=== PATIENT | male | born 1955 | race Caucasian/White ===

== ENCOUNTER 2024-12-20 05:59 | Emergency (ER) | payer SELFPAY ==
--- NOTE | ~2024-12-20 | XR_ITS ---
EXAMINATION: XR MANDIBLE CLINICAL INFORMATION: rule out dislocation COMPARISON: None available. TECHNIQUE: 4 views of the mandible were obtained. FINDINGS: There are no fractures or dislocations. No bone, joint or soft tissue abnormality is demonstrated. Patient is completely edentulous. XR/XR mandible <4V IMPRESSION: No fracture or dislocation involving TM joints or mandible.. Electronically signed by: Fortino Gallegos MD 12/20/2024 07:10 AM [facility] [place]
[2024-12-20 06:10] VITALS: BP 136/82; BP 150/73; PULSE 58; PULSE 61; RESP 16; TEMP 36.3; O2SAT 94; O2SAT 98; BMI 28.4
--- OUTSIDE RECORDS SUMMARY | 2024-12-20 06:47 | XMS_ITS | Encounter Summary ---
Author Organization [employer] Address [address] [place] [address] Care Team Providers Care Abattoir Supervisor Name Role Phone Jethro Alvarez MD Primary Care Provider Encounter Details Date Type Department Care Team (Late st Contact Info) Description 09/07/2024 Lab Requisition [facility] - Main Lab [address] [place] [address] Jethro Alvarez MD [address] [place] [address] Unspecified viral hepatitis C without hepatic coma Social History Tobacco Use Types Packs/Day Years Used Date Smoking Tobacco: Never Assessed Sex and Gender Information Value Date Recorded Sex Assigned at Not on file Legal Sex Male 12:36 PM EST Gender Identity Not on file Sexual Orientation Not on file documented as of this encounter Plan of Treatment Not on file documented as of this encounter Procedures Procedure Name Priority Date/Time Associated Diagnosis Comments SANCHEZ URINE CULTURE TUBE Routine 09/06/2024 9:00 PM EST Unspecified viral hepatitis C without hepatic coma DRUG ABUSE SCREEN 8A PANEL, URINE Routine 09/06/2024 9:00 PM EST Unspecified viral hepatitis C without hepatic coma documented in this encounter Results * Sanchez urine culture tube (09/06/2024 9:00 PM EST) Extra Tube Hold for add-ons. 09/07/2024 11:01 AM EST [facility] Comment:Auto resulted. Urine Urine specimen obtained by clean catch procedure / Unknown 09/06/2024 9:00 PM EST 09/07/2024 9:50 AM EST Jethro Alvarez MD LAB URINE ORDERABLES Final R esult [facility] [address] [place] [address], * Drug abuse screen 8a panel, urine (09/06/2024 9:00 PM EST) Amphetamine Screen, Ur Negative Negative LAB CHEMISTRY METHOD 09/07/2024 10:19 AM [facility] Comment:Certain OTC medicati ons containing ephedrine, phenylephrine, pseudoephedrine and phenylpropanolamine can cause false positive results. Barbiturate Screen, Ur Negative Negative LAB CHEMISTRY METHOD 09/07/2024 10:19 AM [facility] Benzodiazepine Screen, Ur Negative Negative LAB CHEMISTRY METHOD 09/07/2024 10:19 AM [facility] Cocaine Screen, Ur Negative Negative LAB CHEMISTRY METHOD 09/07/2024 10:19 AM [facility] Opiate Screen, Ur Negative Negative LAB CHEMISTRY METHOD 09/07/2024 10:19 AM [facility] Cannabinoid (THC) Screen, Ur Negative Negative LAB CHEMISTRY METHOD 09/07/2024 10:19 AM [facility] Comment:Specimens from patie nts taking pantoprazole sodium (Protonix) have been shown to produce false positive results. Oxycodone Screen, Ur Negative Negative LAB CHEMISTRY METHOD 09/07/2024 10:19 AM [facility] Fentanyl, Ur Negative Negative LAB CHEMISTRY METHOD 09/07/2024 10:19 AM [facility] Urine Urine specimen obtained by clean catch procedure / Unknown Non-blood Collection / Unknown 09/06/2024 9:00 PM EST 09/07/2024 9:27 AM [facility] - 09/07/2024 10:19 AM EST Assay cutoffs: Amphetamines ? 1000 ng/mL Barbiturates ?200 ng/mL Benzodiazepines ?? 200 ng/mL Cocaine ? 300 ng/mL Fentanyl ?1 ng/mL Opiates ? 300 ng/mL Oxycodone ? 100 ng/mL THC ?50 ng/mL Semi-quantitative assay for screening purposes only. Unconfirmed screening result should not be used for non-medical purposes. *ALTERNATE METHOD CONFIRMATION DONE UPON REQUEST ONLY* us Jethro Alvarez MD LAB URINE ORDERABLES Final R esult [facility] ([facility]) [facility] [address] [place] [address], documented in this encounter Visit Diagnoses Diagnosis Unspecified viral hepatitis C without hepatic coma documented in this encounter Care Teams Abattoir Supervisor Relationship Specialty Start Date End Date Jethro Alvarez MD [address] [place] [id number] PCP - General Family Medicine 08/29/24 documented as of this encounter
--- OUTSIDE RECORDS SUMMARY | 2024-12-20 06:47 | XMS_ITS | Encounter Summary ---
Author Organization [employer] Address [address] [place] [address] Care Team Providers Care Automatic Paint Sprayer Operator Name Role Phone Jethro Alvarez MD Primary Care Provider Encounter Details Date Type Department Care Team (Latest Contact Info) Description 10/19/2024 Lab Requisition [facility] - Main Lab [address] [facility] [place] [address] Jethro Alvarez MD [facility] [place] [address] Type 2 diabetes mellitus without complications (CMS/HCC); Unspecified protein-calorie malnutrition (CMS/HCC) Social History Tobacco Use Types Packs/Day Years [...] Procedure Name Priority Date/Time Associated Diagnosis Comments IRON AND TIBC Routine 10/19/2024 5:58 AM EST Type 2 diabetes mellitus without complications (CMS/HCC) Unspecified protein-calorie malnutrition (CMS/HCC) COMPLETE BLOOD COUNT Routine 10/19/2024 5:58 AM EST Type 2 diabetes mellitus without complications (CMS/HCC) Unspecified protein-calorie malnutrition (CMS/HCC) MAGNESIUM Routine 10/19/2024 5:58 AM EST Type 2 diabetes mellitus without complications (CMS/HCC) Unspecified protein-calorie malnutrition (CMS/HCC) IRON Routine 10/19/2024 5:58 AM EST Type 2 diabetes mellitus without complications (CMS/HCC) Unspecified protein-calorie malnutrition (CMS/HCC) FERRITIN Routine 10/19/2024 5:58 AM EST Type 2 diabetes mellitus without complications (CMS/HCC) Unspecified protein-calorie malnutrition (CMS/HCC) HEPATIC FUNCTION PANEL Routine 10/19/2024 5:58 AM EST Type 2 diabetes mellitus without complications (CMS/HCC) Unspecified protein-calorie malnutrition (CMS/HCC) documented in this encounter Results * Hepatic function panel (10/19/2024 5:58 AM EST) Total Protein 6.2 6.0 - 8.0 g/dL LAB CHEMISTRY METHOD 10/19/2024 10:32 AM [facility] Albumin 3.3 3.2 - 5.0 g/dL LAB CHEMISTRY METHOD 10/19/2024 10:32 AM [facility] Total Bilirubin 0.3 0.0 - 1.4 mg/dL LAB CHEMISTRY METHOD 10/19/2024 10:32 AM [facility] Bilirubin, Direct <0.1 0.0 - 0.3 mg/dL LAB CHEMISTRY METHOD 10/19/2024 10:32 AM [facility] Bilirubin, Indirect LAB CHEMISTRY METHOD 10/19/2024 10:32 AM [facility] Comment:Unable to calculate Indirect Bilirubin. ALT (SGPT) 28 10 - 60 unit/L LAB CHEMISTRY METHOD 10/19/2024 10:32 AM [facility] AST (SGOT) 17 10 - 42 unit/L LAB CHEMISTRY METHOD 10/19/2024 10:32 AM [facility] Alkaline Phosphatase 85 42 - 121 unit/L LAB CHEMISTRY METHOD 10/19/2024 10:32 AM [facility] Blood Venous blood specimen / Unknown Venipuncture / Unknown 10/19/2024 5:58 AM EST 10/19/2024 9:16 AM EST us Jethro Alvarez MD LAB BLOOD ORDERABLES Final R esult Performing Organization Address [facility]/ZIP Co de Phone Number [facility] [address] [place] [address], [place] [phone] * (ABNORMAL) Iron (10/19/2024 5:58 AM EST) Iron 45(L) 50 - 160 mcg/dL LAB CHEMISTRY METHOD 10/19/2024 10:29 AM EST [facility] Blood Venous blood specimen / Unknown Venipuncture / Unknown 10/19/2024 5:58 AM EST 10/19/2024 9:16 AM EST Jethro Alvarez MD LAB BLOOD ORDERABLES Final R esult Performing Organization Address [facility]/ZIP Co de Phone Number [facility] [address] [place] [address], [place] [phone] * Ferritin (10/19/2024 5:58 AM EST) Ferritin 34 26 - 388 ng/mL LAB CHEMISTRY METHOD 10/19/2024 10:32 AM EST [facility] Blood Venous blood specimen / Unknown Venipuncture / Unknown 10/19/2024 5:58 AM EST 10/19/2024 9:16 AM EST Jethro Alvarez MD LAB BLOOD ORDERABLES Final R esult Performing Organization Address City/[facility]/ZIP Co de Phone Number [facility] [address] [place] [address], [place] [phone] * (ABNORMAL) Iron and TIBC (10/19/2024 5:58 AM EST) Iron 45(L) 50 - 160 mcg/dL LAB CHEMISTRY METHOD 10/19/2024 10:32 AM EST [facility] TIBC 354 250 - 450 mcg/dL LAB CHEMISTRY METHOD 10/19/2024 10:32 AM EST [facility] Iron Saturation 13(L) 20 - 50 % LAB CHEMISTRY METHOD 10/19/2024 10:32 AM EST [facility] Blood Venous blood specimen / Unknown Venipuncture / Unknown 10/19/2024 5:58 AM EST 10/19/2024 9:16 AM EST Jethro Alvarez MD LAB BLOOD ORDERABLES Final R esult Performing Organization Address City/[facility]/ZIP Co de Phone Number [facility] [address] [place] [address], [place] [phone] * (ABNORMAL) Magnesium (10/19/2024 5:58 AM EST) Pathologist [facility] Magnesium 1.6(L) 1.9 - 2.6 mg/dL LAB CHEMISTRY METHOD 10/19/2024 10:29 AM EST [facility] Blood Venous blood specimen / Unknown Venipuncture / Unknown 10/19/2024 5:58 AM EST 10/19/2024 9:16 AM EST Jethro Alvarez MD LAB BLOOD ORDERABLES Final R esult Performing Organization Address City/[facility]/ZIP Co de Phone Number [facility] [address] [place] [address], [place] [phone] * (ABNORMAL) Complete blood count (10/19/2024 5:58 AM EST) WBC 10.7 4.8 - 10.8 K/mcL LAB HEMETOLOGY METHOD 10/19/2024 10:08 AM EST [facility] RBC 4.70 4.50 - 5.50 M/mcL LAB HEMETOLOGY METHOD 10/19/2024 10:08 AM [facility] Hemoglobin 13.0(L) 13.5 - 17.5 g/dL LAB HEMETOLOGY METHOD 10/19/2024 10:08 AM EST [facility] Hematocrit 40.8(L) 42.0 - 54.0 % LAB HEMETOLOGY METHOD 10/19/2024 10:08 AM [facility] MCV 87.0 79.0 - 98.0 FL LAB HEMETOLOGY METHOD 10/19/2024 10:08 AM [facility] MCH 27.7 27.0 - 32.0 pcg LAB HEMETOLOGY METHOD 10/19/2024 10:08 AM [facility] MCHC 31.9(L) 32.0 - 37.0 g/dL LAB HEMETOLOGY METHOD 10/19/2024 10:08 AM [facility] RDW 13.5 11.0 - 15.0 % LAB HEMETOLOGY METHOD 10/19/2024 10:08 AM [facility] Platelets 359 130 - 400 K/mcL LAB HEMETOLOGY METHOD 10/19/2024 10:08 AM [facility] MPV 11.0 7.0 - 11.0 FL LAB HEMETOLOGY METHOD 10/19/2024 10:08 AM [facility] NRBC 0.0 <1.0 % LAB HEMETOLOGY METHOD 10/19/2024 10:08 AM [facility] NRBC Absolute 0.00 <0.10 K/mcL LAB HEMETOLOGY METHOD 10/19/2024 10:08 AM [facility] Blood Venous blood specimen / Unknown Venipuncture / Unknown 10/19/2024 5:58 AM EST 10/19/2024 9:16 AM EST us Jethro Alvarez MD LAB BLOOD ORDERABLES Final R esult [facility] [address] [place] [address], documented in this encounter Visit Diagnoses Diagnosis Type 2 diabetes mellitus without complications (CMS/HCC) Unspecified protein-calorie malnutrition (CMS/HCC) Unspecified protein-calorie malnutrition documented in this encounter Care Teams Automatic Paint Sprayer Operator Relationship Specialty Start Date End Date Jethro Alvarez MD [address] [place] [address] PCP - General Family Medicine 08/29/24 documented as of this encounter
--- OUTSIDE RECORDS SUMMARY | 2024-12-20 06:47 | XMS_ITS | Encounter Summary ---
Author Organization [employer] Address [address] [place] [address] Care Team Providers Care Senior Customer Service Representative Name Role Phone Jethro Alvarez MD Primary Care Provider Encounter Details Date Type Department Care Team (Late st Contact Info) Description 08/29/2024 Lab Requisition [facility] [address] [facility] [place] [address] Jethro Alvarez MD [address] [place] [address] Essential (primary) hypertension Social History Tobacco Use Types Packs/Day Years [...] Procedure Name Priority Date/Time Associated Diagnosis Comments DRUG ABUSE SCREEN 8A PANEL, URINE Routine 08/29/2024 7:00 AM EST Essential (primary) hypertension documented in this encounter Results * (ABNORMAL) Drug abuse screen 8a panel, urine (08/29/2024 7:00 AM EST) Amphetamine Screen, Ur Negative Negative LAB CHEMISTRY METHOD 4 1:[address] [facility] Comment:Certain OTC medicati ons containing ephedrine, phenylephrine, pseudoephedrine and phenylpropanolamine can cause false positive results. Barbiturate Screen, Ur Negative Negative LAB CHEMISTRY METHOD 4 1:[address] [facility] Benzodiazepine Screen, Ur Positive(A ) Negative LAB CHEMISTRY METHOD 4 1:[address] [facility] Cocaine Screen, Ur Negative Negative LAB CHEMISTRY METHOD 4 1:[address] [facility] Opiate Screen, Ur Positive(A ) Negative LAB CHEMISTRY METHOD 4 1:29 PM [facility] Cannabinoid (THC) Screen, Ur Negative Negative LAB CHEMISTRY METHOD 4 1:[address] [facility] Comment:Specimens from patie nts taking pantoprazole sodium (Protonix) have been shown to produce false positive results. Oxycodone Screen, Ur Negative Negative LAB CHEMISTRY METHOD 4 1:[address] [facility] Fentanyl, Ur Negative Negative LAB CHEMISTRY METHOD 4 1:29 PM [facility] Urine Urine specimen obtained by clean catch procedure / Unknown 08/29/2024 7:00 AM EST 08/29/2024 12:[address] [facility] - 08/29/2024 1:29 PM EST Assay cutoffs: Amphetamines ? 1000 ng/mL Barbiturates ?200 ng/mL Benzodiazepines ?? 200 ng/mL Cocaine ? 300 ng/mL Fentanyl ?1 ng/mL Opiates ? 300 ng/mL Oxycodone ? 100 ng/mL THC ?50 ng/mL Semi-quantitative assay for screening purposes only. Unconfirmed screening result should not be used for non-medical purposes. *ALTERNATE METHOD CONFIRMATION DONE UPON REQUEST ONLY* Jethro Alvarez MD LAB URINE ORDERABLES Final R esult [facility] [address] [place] [address], documented in this encounter Visit Diagnoses Diagnosis Essential (primary) hypertension Unspecified essential hypertension documented in this encounter Care Teams Senior Customer Service Representative Relationship Specialty Start Date End Date Jethro Alvarez MD [address] [place] [address] PCP - General Family Medicine 08/29/24 documented as of this encounter
--- OUTSIDE RECORDS SUMMARY | 2024-12-20 06:47 | XMS_ITS | Encounter Summary ---
Author Organization [facility] Address [address] [place] [address] Care Team Providers Care Community Planning Technician Name Role Phone Jethro Alvarez MD Primary Care Provider [phone] Encounter Details Date Type Department Care Team (Late st Contact Info) Description 11/05/2024 Lab Requisition [facility] - Main Lab [address] [place] [address] Jethro Alvarez MD [address] [place] [address] Essential (primary) hypertension Social History Tobacco Use [...] Procedure Name Priority Date/Time Associated Diagnosis Comments MAGNESIUM Routine 11/05/2024 6:46 AM EST Essential (primary) hypertension BASIC METABOLIC PANEL Routine 11/05/2024 6:46 AM EST Essential (primary) hypertension documented in this encounter Results * Magnesium (11/05/2024 6:46 AM EST) Magnesium 1.9 1.9 - 2.6 mg/dL LAB CHEMISTRY METHOD 11/05/2024 9:41 AM EST [facility] Blood Venous blood specimen / Unknown Venipuncture / Unknown 11/05/2024 6:46 AM EST 11/05/2024 8:49 AM EST Jethro Alvarez MD LAB BLOOD ORDERABLES Final R esult [facility] [address] [place] [address], * (ABNORMAL) Basic metabolic panel (11/05/2024 6:46 AM EST) Sodium 135 133 - 145 mmol/L LAB CHEMISTRY METHOD 11/05/2024 9:41 AM [facility] Potassium 4.5 3.5 - 5.5 mmol/L LAB CHEMISTRY METHOD 11/05/2024 9:41 AM [facility] Chloride 105 96 - 110 mmol/L LAB CHEMISTRY METHOD 11/05/2024 9:41 AM [facility] CO2 24 21 - 32 mmol/L LAB CHEMISTRY METHOD 11/05/2024 9:41 AM [facility] Anion Gap 6 3 - 11 LAB CHEMISTRY METHOD 11/05/2024 9:41 AM [facility] Glucose 111(H) 70 - 100 mg/dL LAB CHEMISTRY METHOD 11/05/2024 9:41 AM [facility] BUN 12 5 - 25 mg/dL LAB CHEMISTRY METHOD 11/05/2024 9:41 AM [facility] Creatinine 0.68(L) 0.70 - 1.30 mg/dL LAB CHEMISTRY METHOD 11/05/2024 9:41 AM [facility] eGFR 102 >=60 mL/min/1. 73m2 LAB CHEMISTRY METHOD 11/05/2024 9:41 AM [facility] Comment:Calculation based on the??Chronic Kidney Disease Epidemiology Collaboration (CKD-EPI) equation refit??without adjustment for race. BUN/Creatinine Ratio 17.6 LAB CHEMISTRY METHOD 11/05/2024 9:41 AM [facility] Calcium 8.8 8.5 - 10.5 mg/dL LAB CHEMISTRY METHOD 11/05/2024 9:41 AM [facility] Blood Venous blood specimen / Unknown Venipuncture / Unknown 11/05/2024 6:46 AM EST 11/05/2024 8:49 AM EST us Jethro Alvarez MD LAB BLOOD ORDERABLES Final R esult [facility] ([facility]) [facility] [address] [place] [address], documented in this encounter Visit Diagnoses Diagnosis Essential (primary) hypertension Unspecified essential hypertension documented in this encounter Care Teams Community Planning Technician Relationship Specialty Start Date End Date Jethro Alvarez MD [address] [place] [address] PCP - General Family Medicine 08/29/24 documented as of this encounter
--- OUTSIDE RECORDS SUMMARY | 2024-12-20 06:47 | XMS_ITS | Clinical Summary ---
Author Organization [address] [facility] Address [address] [place] [address] Phone Care Team Providers Care Mold Burner Name Role Phone Jethro Alvarez MD Primary Care Provider [phone] Encounters Date Type Department Care Team Description 11/05/2024 Lab Requisition [facility] [address] [place] [phone] Jethro Alvarez MD Essential (primary) hypertension 10/19/2024 Lab Requisition [facility] [address] [place] [phone] Jethro Alvarez MD Type 2 diabetes mellitus without complications (CMS/HCC); Unspecified protein-calorie malnutrition (CMS/HCC) 10/05/2024 Lab Requisition [facility] [address] [place] [phone] Jethro Alvarez MD Other intermodal truck driver (current) drug therapy 09/29/2024 Lab Requisition [facility] [address] [place] [phone] Jethro Alvarez MD Unspecified protein-calorie malnutrition (CMS/HCC); Vitamin D deficiency, unspecified; Type 2 diabetes mellitus without complications (CMS/HCC); Weakness; Essential (primary) hypertension; Anemia, unspecified from Last 3 Months Social History Tobacco Use Types Packs/Day Years Used Date Smoking Tobacco: Never Assessed Sex and Gender Information Value Date Recorded Sex Assigned at Not on file Legal Sex Male 12:36 PM EST Gender Identity Not on file Sexual Orientation Not on file Plan of Treatment Health Maintenance Due Date Last Done Comments Diabetes: Annual Foot Exam 1967 Diabetes: Annual Retina Eye Exam 1967 DTaP,Tdap,and Td Vaccines (1 - Tdap) 1976 Pneumococcal Vaccine: 50+ Years (1 of 2 - PCV) 1976 Zoster Vaccines (1 of 2) 2007 COVID-19 Vaccine ( - 2023-2 5 season) 2024 Influenza Vaccine (#1) 2024 Abdominal Aortic Aneurysm (AAA) Screen 08/29/2024 Cholesterol Screening (Lipid Panel) 08/29/2024 Colorectal Cancer Screening: Colonoscopy 08/29/2024 Depression Screening 08/29/2024 Falls Risk Assessment 08/29/2024 Hepatitis C Screening 08/29/2024 Social Influencers of Health Screening 08/29/2024 Diabetes: Annual Urine Albumin-Creatinine Ratio (uACR) 09/29/2024 Diabetes: Blood Sugar Contro l Test (HGBA1C) 03/30/2025 09/29/2024 Diabetes: Annual GFR (Glomerular Filtration Rate) 11/05/2025 11/05/2024, 09/29/2024 Hypertension/CHF/CAD Annual BMP Blood Test 11/05/2025 11/05/2024, 09/29/2024 RSV Immunization Patients 60 + Years Old (1 - 1-dose 75+ series) 2032 HIB Vaccines Aged Out No longer eligi ble based on patient's age to complete this topic HPV Vaccines Aged Out No longer eligi ble based on patient's age to complete this topic Hepatitis A Vaccines Aged Out No long er eligible based on patient's age to complete this topic Hepatitis B Vaccines Aged Out No long er eligible based on patient's age to complete this topic IPV Vaccines Aged Out No longer eligi ble based on patient's age to complete this topic MMR Vaccines Aged Out No longer eligi ble based on patient's age to complete this topic Meningococcal ACWY Vaccine Aged Out N o longer eligible based on patient's age to complete this topic Meningococcal B Vacine Aged Out No lo nger eligible based on patient's age to complete this topic RSV Immunization Patients Under 20 months Aged Out No longer eligible b ased on patient's age to complete this topic Varicella Vaccines Aged Out No longer eligible based on patient's age to complete this topic Procedures Procedure Name Priority Date/Time Associated Diagnosis Comments MAGNESIUM Routine 11/05/2024 6:46 AM EST Essential (primary) hypertension BASIC METABOLIC PANEL Routine 11/05/2024 6:46 AM EST Essential (primary) hypertension HEPATIC FUNCTION PANEL Routine 10/19/2024 5:58 AM EST Type 2 diabetes mellitus without complications (CMS/HCC) Unspecified protein-calorie malnutrition (CMS/HCC) IRON Routine 10/19/2024 5:58 AM EST Type 2 diabetes mellitus without complications (CMS/HCC) Unspecified protein-calorie malnutrition (CMS/HCC) FERRITIN Routine 10/19/2024 5:58 AM EST Type 2 diabetes mellitus without complications (CMS/HCC) Unspecified protein-calorie malnutrition (CMS/HCC) IRON AND TIBC Routine 10/19/2024 5:58 AM EST Type 2 diabetes mellitus without complications (CMS/HCC) Unspecified protein-calorie malnutrition (CMS/HCC) MAGNESIUM Routine 10/19/2024 5:58 AM EST Type 2 diabetes mellitus without complications (CMS/HCC) Unspecified protein-calorie malnutrition (CMS/HCC) COMPLETE BLOOD COUNT Routine 10/19/2024 5:58 AM EST Type 2 diabetes mellitus without complications (CMS/HCC) Unspecified protein-calorie malnutrition (CMS/HCC) DRUG ABUSE SCREEN, URINE Routine 10/04/2024 12:00 AM EST Other intermodal truck driver (current) drug therapy VITAMIN D 25 HYDROXY Routine 09/29/2024 5:29 AM EST Unspecified protein-calorie malnutrition (CMS/HCC) Vitamin D deficiency, unspecified Type 2 diabetes mellitus without complications (CMS/HCC) Weakness Essential (primary) hypertension Anemia, unspecified MAGNESIUM Routine 09/29/2024 5:29 AM EST Unspecified protein-calorie malnutrition (CMS/HCC) Vitamin D deficiency, unspecified Type 2 diabetes mellitus without complications (CMS/HCC) Weakness Essential (primary) hypertension Anemia, unspecified HEMOGLOBIN A1C Routine 09/29/2024 5:29 AM EST Unspecified protein-calorie malnutrition (CMS/HCC) Vitamin D deficiency, unspecified Type 2 diabetes mellitus without complications (CMS/HCC) Weakness Essential (primary) hypertension Anemia, unspecified THYROID STIMULATING HORMONE WITH REFLEX TO FREE T4 AND FREE T3 Routine 09/29/2024 5:29 AM EST Unspecified protein-calorie malnutrition (CMS/HCC) Vitamin D deficiency, unspecified Type 2 diabetes mellitus without complications (CMS/HCC) Weakness Essential (primary) hypertension Anemia, unspecified BASIC METABOLIC PANEL Routine 09/29/2024 5:29 AM EST Unspecified protein-calorie malnutrition (CMS/HCC) Vitamin D deficiency, unspecified Type 2 diabetes mellitus without complications (CMS/HCC) Weakness Essential (primary) hypertension Anemia, unspecified COMPLETE BLOOD COUNT Routine 09/29/2024 5:29 AM EST Unspecified protein-calorie malnutrition (CMS/HCC) Vitamin D deficiency, unspecified Type 2 diabetes mellitus without complications (CMS/HCC) Weakness Essential (primary) hypertension Anemia, unspecified from Last 3 Months Results * Magnesium (11/05/2024 6:46 AM EST) Only the most recent of3 resultswithin the time period is included. [facility] Magnesium 1.9 1.9 - 2.6 mg/dL LAB CHEMISTRY METHOD 11/05/2024 9:41 AM EST [facility] Blood Venous blood specimen / Unknown Venipuncture / Unknown 11/05/2024 6:46 AM EST 11/05/2024 8:49 AM EST us Jethro Alvarez MD LAB BLOOD ORDERABLES Final R esult [facility] [address] [place] [address], * (ABNORMAL) Basic metabolic panel (11/05/2024 6:46 AM EST) Only the most recent of2 resultswithin the time period is included. [facility] Sodium 135 133 - 145 mmol/L LAB CHEMISTRY METHOD 11/05/2024 9:41 AM [facility] Potassium 4.5 3.5 - 5.5 mmol/L LAB CHEMISTRY METHOD 11/05/2024 9:41 AM [facility] Chloride 105 96 - 110 mmol/L LAB CHEMISTRY METHOD 11/05/2024 9:41 AM [facility] CO2 24 21 - 32 mmol/L LAB CHEMISTRY METHOD 11/05/2024 9:41 AM [facility] Anion Gap 6 3 - 11 LAB CHEMISTRY METHOD 11/05/2024 9:41 AM [facility] Glucose 111(H) 70 - 100 mg/dL LAB CHEMISTRY METHOD 11/05/2024 9:41 AM [facility] BUN 12 5 - 25 mg/dL LAB CHEMISTRY METHOD 11/05/2024 9:41 AM [facility] Creatinine 0.68(L) 0.70 - 1.30 mg/dL LAB CHEMISTRY METHOD 11/05/2024 9:41 AM [facility] eGFR 102 >=60 mL/min/1. 73m2 LAB CHEMISTRY METHOD 11/05/2024 9:41 AM [facility] Comment:Calculation based on the??Chronic Kidney Disease Epidemiology Collaboration (CKD-EPI) equation refit??without adjustment for race. BUN/Creatinine Ratio 17.6 LAB CHEMISTRY METHOD 11/05/2024 9:41 AM [facility] Calcium 8.8 8.5 - 10.5 mg/dL LAB CHEMISTRY METHOD 11/05/2024 9:41 AM [facility] Blood Venous blood specimen / Unknown Venipuncture / Unknown 11/05/2024 6:46 AM EST 11/05/2024 8:49 AM EST us Jethro Alvarez MD LAB BLOOD ORDERABLES Final R esult [facility] [address] [place] [address], [place] [phone] * (ABNORMAL) Iron and TIBC (10/19/2024 5:58 AM EST) Iron 45(L) 50 - 160 mcg/dL LAB CHEMISTRY METHOD 10/19/2024 10:32 AM EST [facility] TIBC 354 250 - 450 mcg/dL LAB CHEMISTRY METHOD 10/19/2024 10:32 AM EST [facility] Iron Saturation 13(L) 20 - 50 % LAB CHEMISTRY METHOD 10/19/2024 10:32 AM EST [facility] Blood Venous blood specimen / Unknown Venipuncture / Unknown 10/19/2024 5:58 AM EST 10/19/2024 9:16 AM EST Jethro Alvarez MD LAB BLOOD ORDERABLES Final R esult Performing Organization Address [facility]/ZIP Co de Phone Number [facility] [address] [place] [address], [place] [phone] * (ABNORMAL) Complete blood count (10/19/2024 5:58 AM EST) Only the most recent of2 resultswithin the time period is included. WBC 10.7 4.8 - 10.8 K/mcL LAB HEMETOLOGY METHOD 10/19/2024 10:08 AM EST [facility] RBC 4.70 4.50 - 5.50 M/mcL LAB HEMETOLOGY METHOD 10/19/2024 10:08 AM EST [facility] Hemoglobin 13.0(L) 13.5 - 17.5 g/dL LAB HEMETOLOGY METHOD 10/19/2024 10:08 AM [facility] Hematocrit 40.8(L) 42.0 - 54.0 % LAB HEMETOLOGY METHOD 10/19/2024 10:08 AM EST [facility] MCV 87.0 79.0 - 98.0 FL LAB HEMETOLOGY METHOD 10/19/2024 10:08 AM [facility] MCH 27.7 27.0 - 32.0 pcg LAB HEMETOLOGY METHOD 10/19/2024 10:08 AM [facility] MCHC 31.9(L) 32.0 - 37.0 g/dL LAB HEMETOLOGY METHOD 10/19/2024 10:08 AM [facility] RDW 13.5 11.0 - 15.0 % LAB HEMETOLOGY METHOD 10/19/2024 10:08 AM [facility] Platelets 359 130 - 400 K/mcL LAB HEMETOLOGY METHOD 10/19/2024 10:08 AM [facility] MPV 11.0 7.0 - 11.0 FL LAB HEMETOLOGY METHOD 10/19/2024 10:08 AM [facility] NRBC 0.0 <1.0 % LAB HEMETOLOGY METHOD 10/19/2024 10:08 AM [facility] NRBC Absolute 0.00 <0.10 K/mcL LAB HEMETOLOGY METHOD 10/19/2024 10:08 AM [facility] Blood Venous blood specimen / Unknown Venipuncture / Unknown 10/19/2024 5:58 AM EST 10/19/2024 9:16 AM EST us Jethro Alvarez MD LAB BLOOD ORDERABLES Final R esult [facility] [address] [place] [address], * (ABNORMAL) Iron (10/19/2024 5:58 AM EST) Iron 45(L) 50 - 160 mcg/dL LAB CHEMISTRY METHOD 10/19/2024 10:29 AM EST [facility] Blood Venous blood specimen / Unknown Venipuncture / Unknown 10/19/2024 5:58 AM EST 10/19/2024 9:16 AM EST Jethro Alvarez MD LAB BLOOD ORDERABLES Final R esult Performing Organization Address City/[facility]/ZIP Co de Phone Number [facility] [address] [place] [address], [place] [phone] * Ferritin (10/19/2024 5:58 AM EST) Pathologist [facility] Ferritin 34 26 - 388 ng/mL LAB CHEMISTRY METHOD 10/19/2024 10:32 AM EST [facility] Blood Venous blood specimen / Unknown Venipuncture / Unknown 10/19/2024 5:58 AM EST 10/19/2024 9:16 AM EST Jethro Alvarez MD LAB BLOOD ORDERABLES Final R esult Performing Organization Address City/[facility]/ZIP Co de Phone Number [facility] [address] [place] [address], [place] [phone] * Hepatic function panel (10/19/2024 5:58 AM EST) [facility] Total Protein 6.2 6.0 - 8.0 g/dL LAB CHEMISTRY METHOD 10/19/2024 10:32 AM EST [facility] Albumin 3.3 3.2 - 5.0 g/dL LAB CHEMISTRY METHOD 10/19/2024 10:32 AM EST [facility] Total Bilirubin 0.3 0.0 - 1.4 mg/dL LAB CHEMISTRY METHOD 10/19/2024 10:32 AM EST [facility] Bilirubin, Direct <0.1 0.0 - 0.3 mg/dL LAB CHEMISTRY METHOD 10/19/2024 10:32 AM EST [facility] Bilirubin, Indirect LAB CHEMISTRY METHOD 10/19/2024 10:32 AM EST [facility] Comment:Unable to calculate Indirect Bilirubin. ALT (SGPT) 28 10 - 60 unit/L LAB CHEMISTRY METHOD 10/19/2024 10:32 AM EST [facility] AST (SGOT) 17 10 - 42 unit/L LAB CHEMISTRY METHOD 10/19/2024 10:32 AM EST [facility] Alkaline Phosphatase 85 42 - 121 unit/L LAB CHEMISTRY METHOD 10/19/2024 10:32 AM EST [facility] Blood Venous blood specimen / Unknown Venipuncture / Unknown 10/19/2024 5:58 AM EST 10/19/2024 9:16 AM EST us Jethro Alvarez MD LAB BLOOD ORDERABLES Final R esult [facility] [address] [place] [address], * Drug abuse screen, urine (10/04/2024 12:00 AM EST) Amphetamines Urine Negative Cutoff=10 00 ng/mL 10/07/2024 5:05 AM EST [facility] Comment:Amphetamine test inc ludes Amphetamine and Methamphetamine. Barbiturate Negative Cutoff=30 0 ng/mL 10/07/2024 5:05 AM EST [facility] Benzodiazepines Negative Cutoff=30 0 ng/mL 10/07/2024 5:05 AM EST [facility] Cannabinoid Negative Cutoff=50 ng/mL 10/07/2024 5:05 AM EST [facility] Cocaine (Metabolite) Screen Urine Negative Cutoff=30 0 ng/mL 10/07/2024 5:05 AM EST [facility] Opiates Negative Cutoff=30 0 ng/mL 10/07/2024 5:05 AM EST [facility] Comment:Opiate test includes Codeine and Morphine only. Phencyclidine (PCP) Negative Cutoff=25 ng/mL 10/07/2024 5:05 AM EST [facility] Ethanol Urine Negative Cutoff=0. 020 % 10/07/2024 5:05 AM EST [facility] Urine Urine specimen obtained by clean catch procedure / Unknown Non-blood Collection / Unknown 10/04/2024 10/05/2024 11:08 AM EST Narrative [facility] - 10/07/2024 5:05 AM EST Performed at: ??01 - [facility] [address] ??[id number] Hot Mill Supervisor: Orin Monroe MD, Phone: ??[phone] Specimen Comment: A duplicate report has been generated due to demographic updates. Jethro Alvarez MD LAB URINE ORDERABLES Edited Result - Final [facility] * Thyroid stimulating hormone with reflex to free t4 and free t3 (09/29/2024 5:29 AM EST) TSH 2.61 0.40 - 4.00 mcIU/mL LAB CHEMISTRY METHOD 09/29/2024 10:38 AM EST [facility] Blood Venous blood specimen / Unknown Venipuncture / Unknown 09/29/2024 5:29 AM EST 09/29/2024 9:31 AM EST Jethro Alvarez MD LAB BLOOD ORDERABLES Final R esult [facility] [address] [place] [address], [place] [phone] * (ABNORMAL) Vitamin D 25 hydroxy (09/29/2024 5:29 AM EST) Vit D, 25-Hydroxy 9.3(L) 30.0 - 80.0 ng/mL LAB CHEMISTRY METHOD 09/29/2024 10:49 AM EST [facility] Blood Venous blood specimen / Unknown Venipuncture / Unknown 09/29/2024 5:29 AM EST 09/29/2024 9:31 AM EST us Jethro Alvarez MD LAB BLOOD ORDERABLES Final R esult [facility] [address] [place] [address], [place] [phone] * Hemoglobin A1c (09/29/2024 5:29 AM EST) Hemoglobin A1C 6.4 <6.5 % LAB CHEMISTRY METHOD 09/29/2024 11:38 AM EST [facility] Mean Bld Glu Estim. 137 mg/dL LAB CHEMISTRY METHOD 09/29/2024 11:38 AM EST [facility] Blood Venous blood specimen / Unknown Venipuncture / Unknown 09/29/2024 5:29 AM EST 09/29/2024 9:31 AM EST Jethro Alvarez MD LAB BLOOD ORDERABLES Final R esult Performing Organization Address City/[facility]/ZIP Co de Phone Number [facility] [address] [place] [address], [place] [phone] from Last 3 Months Care Teams Mold Burner Relationship Specialty Start Date End Date Jethro Alvarez MD [address] [place] [address] PCP - General Family Medicine 08/29/24
--- OUTSIDE RECORDS SUMMARY | 2024-12-20 06:47 | XMS_ITS | Encounter Summary ---
Author Organization [facility] Address [address] [place] [address] Care Team Providers Care Training Program Developer Name Role Phone Jethro Alvarez MD Primary Care Provider [phone] Encounter Details Date Type Department Care Team (Latest Contact Info) Description 09/29/2024 Lab Requisition [facility] [address] [facility] [place] [address] Jethro Alvarez MD [facility] [address] Unspecified protein-calorie malnutrition (CMS/HCC); Vitamin D deficiency, unspecified; Type 2 diabetes mellitus without complications (CMS/HCC); Weakness; Essential (primary) hypertension; Anemia, unspecified Social History Tobacco Use Types Packs/Day Years [...] Procedure Name Priority Date/Time Associated Diagnosis Comments THYROID STIMULATING HORMONE WITH REFLEX TO FREE T4 AND FREE T3 Routine 09/29/2024 5:29 AM EST Unspecified protein-calorie malnutrition (CMS/HCC) Vitamin D deficiency, unspecified Type 2 diabetes mellitus without complications (CMS/HCC) Weakness Essential (primary) hypertension Anemia, unspecified VITAMIN D 25 HYDROXY Routine 09/29/2024 5:29 [...] (CMS/HCC) Weakness Essential (primary) hypertension Anemia, unspecified documented in this encounter Results * (ABNORMAL) Vitamin D 25 hydroxy (09/29/2024 5:29 AM EST) Vit D, 25-Hydroxy 9.3(L) 30.0 - 80.0 ng/mL LAB CHEMISTRY METHOD 09/29/2024 10:49 AM EST [facility] Blood Venous blood specimen / Unknown Venipuncture / Unknown 09/29/2024 5:29 AM EST 09/29/2024 9:31 AM EST us Jethro Alvarez MD LAB BLOOD ORDERABLES Final R esult [facility] [address] [place] [address], * (ABNORMAL) Magnesium (09/29/2024 5:29 AM EST) Magnesium 1.8(L) 1.9 - 2.6 mg/dL LAB CHEMISTRY METHOD 09/29/2024 10:49 AM EST [facility] Blood Venous blood specimen / Unknown Venipuncture / Unknown 09/29/2024 5:29 AM EST 09/29/2024 9:31 AM EST us Jethro Alvarez MD LAB BLOOD ORDERABLES Final R esult Performing Organization Address [facility]/ZIP Co de Phone Number [facility] [address] [place] [address], [place] [phone] * Hemoglobin A1c (09/29/2024 5:29 AM EST) Hemoglobin A1C 6.4 <6.5 % LAB CHEMISTRY METHOD 09/29/2024 11:38 AM EST [facility] Mean Bld Glu Estim. 137 mg/dL LAB CHEMISTRY METHOD 09/29/2024 11:38 AM EST [facility] Blood Venous blood specimen / Unknown Venipuncture / Unknown 09/29/2024 5:29 AM EST 09/29/2024 9:31 AM EST us Jethro Alvarez MD LAB BLOOD ORDERABLES Final R esult Performing Organization Address [facility]/ZIP Co de Phone Number [facility] [address] [place] [address], [place] [phone] * Thyroid stimulating hormone with reflex to free t4 and free t3 (09/29/2024 5:29 AM EST) Pathologist [facility] TSH 2.61 0.40 - 4.00 mcIU/mL LAB CHEMISTRY METHOD 09/29/2024 10:38 AM EST [facility] Blood Venous blood specimen / Unknown Venipuncture / Unknown 09/29/2024 5:29 AM EST 09/29/2024 9:31 AM EST us Jethro Alvarez MD LAB BLOOD ORDERABLES Final R esult [facility] [address] [place] [address], [place] [phone] * (ABNORMAL) Basic metabolic panel (09/29/2024 5:29 AM EST) Sodium 140 133 - 145 mmol/L LAB CHEMISTRY METHOD 09/29/2024 10:49 AM [facility] Potassium 4.1 3.5 - 5.5 mmol/L LAB CHEMISTRY METHOD 09/29/2024 10:49 AM [facility] Chloride 107 96 - 110 mmol/L LAB CHEMISTRY METHOD 09/29/2024 10:49 AM [facility] CO2 25 21 - 32 mmol/L LAB CHEMISTRY METHOD 09/29/2024 10:49 AM [facility] Anion Gap 8 3 - 11 LAB CHEMISTRY METHOD 09/29/2024 10:49 AM [facility] Glucose 59(L) 70 - 100 mg/dL LAB CHEMISTRY METHOD 09/29/2024 10:49 AM [facility] BUN 11 5 - 25 mg/dL LAB CHEMISTRY METHOD 09/29/2024 10:49 AM [facility] Creatinine 0.76 0.70 - 1.30 mg/dL LAB CHEMISTRY METHOD 09/29/2024 10:49 AM [facility] eGFR 99 >=60 mL/min/1. 73m2 LAB CHEMISTRY METHOD 09/29/2024 10:49 AM [facility] Comment:Calculation based on the??Chronic Kidney Disease Epidemiology Collaboration (CKD-EPI) equation refit??without adjustment for race. BUN/Creatinine Ratio 14.5 LAB CHEMISTRY METHOD 09/29/2024 10:49 AM [facility] Calcium 9.4 8.5 - 10.5 mg/dL LAB CHEMISTRY METHOD 09/29/2024 10:49 AM [facility] Blood Venous blood specimen / Unknown Venipuncture / Unknown 09/29/2024 5:29 AM EST 09/29/2024 9:31 AM EST us Jethro Alvarez MD LAB BLOOD ORDERABLES Final R esult [facility] [address] [place] [address], [place] [phone] * (ABNORMAL) Complete blood count (09/29/2024 5:29 AM EST) WBC 10.3 4.8 - 10.8 K/mcL LAB HEMETOLOGY METHOD 09/29/2024 10:05 AM [facility] RBC 4.60 4.50 - 5.50 M/mcL LAB HEMETOLOGY METHOD 09/29/2024 10:05 AM [facility] Hemoglobin 13.0(L) 13.5 - 17.5 g/dL LAB HEMETOLOGY METHOD 09/29/2024 10:05 AM [facility] Hematocrit 40.3(L) 42.0 - 54.0 % LAB HEMETOLOGY METHOD 09/29/2024 10:05 AM [facility] MCV 87.0 79.0 - 98.0 FL LAB HEMETOLOGY METHOD 09/29/2024 10:05 AM [facility] MCH 28.1 27.0 - 32.0 pcg LAB HEMETOLOGY METHOD 09/29/2024 10:05 AM [facility] MCHC 32.3 32.0 - 37.0 g/dL LAB HEMETOLOGY METHOD 09/29/2024 10:05 AM [facility] RDW 13.4 11.0 - 15.0 % LAB HEMETOLOGY METHOD 09/29/2024 10:05 AM [facility] Platelets 333 130 - 400 K/mcL LAB HEMETOLOGY METHOD 09/29/2024 10:05 AM [facility] MPV 10.7 7.0 - 11.0 FL LAB HEMETOLOGY METHOD 09/29/2024 10:05 AM EST [facility] NRBC 0.0 <1.0 % LAB HEMETOLOGY METHOD 09/29/2024 10:05 AM EST [facility] NRBC Absolute 0.00 <0.10 K/mcL LAB HEMETOLOGY METHOD 09/29/2024 10:05 AM EST [facility] Blood Venous blood specimen / Unknown Venipuncture / Unknown 09/29/2024 5:29 AM EST 09/29/2024 9:31 AM EST Jethro Alvarez MD LAB BLOOD ORDERABLES Final R esult [facility] [address] [place] [address], documented in this encounter Visit Diagnoses Diagnosis Unspecified protein-calorie malnutrition (CMS/HCC) Unspecified protein-calorie malnutrition Vitamin D deficiency, unspecified Type 2 diabetes mellitus without complications (CMS/HCC) Weakness Other malaise and fatigue Essential (primary) hypertension Unspecified essential hypertension Anemia, unspecified documented in this encounter Care Teams Training Program Developer Relationship Specialty Start Date End Date Jethro Alvarez MD [address] [place] [address] PCP - General Family Medicine 08/29/24 documented as of this encounter
--- OUTSIDE RECORDS SUMMARY | 2024-12-20 06:47 | XMS_ITS | Encounter Summary ---
Author Organization [facility] Address [address] [place] [address] Care Team Providers Care Route Sales Driver Name Role Phone Jethro Alvarez MD Primary Care Provider Encounter Details Date Type Department Care Team (Late st Contact Info) Description 10/05/2024 Lab Requisition [facility] - Main Lab [address] [facility] [place] [address] Jethro Alvarez MD [address] [place] [address] Other [facility]p (current) drug therapy Social History Tobacco Use Types Packs/Day Years [...] Priority Date/Time Associated Diagnosis Comments DRUG ABUSE SCREEN, URINE Routine 10/04/2024 12:00 AM EST Other [facility] (current) drug therapy documented in this encounter Results * Drug abuse screen, urine (10/04/2024 12:00 [...] AM EST Performed at: ??01 - [facility] [address] ??[id number] Wood Treating Inspector: Orin Monroe MD, Phone: ??[phone] Specimen Comment: A duplicate report has been generated due to demographic updates. Jethro Alvarez MD LAB URINE ORDERABLES Edited Result - Final [facility] documented in this encounter Visit Diagnoses Diagnosis Other [facility] (current) drug therapy documented in this encounter Care Teams Route Sales Driver Relationship Specialty Start Date End Date Jethro Alvarez MD [address] [place] [id number] PCP - General Family Medicine 08/29/24 documented as of this encounter
--- NOTE | 2024-12-20 07:17 | ED.GENADULT ---
HPI - General Adult General Chief complaint: Dental/Oral Stated complaint: SNF Jaw pain x3 hours & stuck open Time Seen by Provider: 12/20/24 07:07 Source: patient Mode of arrival: EMS History of Present Illness HPI narrative: This is a 69 years old male sent by the nursing facility because Jaw dislocation. He is unable to fully close his mouth for the last 4 hour. His mouth is stuck open. Patient denies history of stroke, peripheral vascular disease. He is a long-term resident Onset (ago): hour(s) (4) Location: mouth Radiation: non-radiation Severity: moderate Pain Consistency: constant Relieving factors: none Exacerbating factors: none Related Data Allergies Allergy/AdvReac Type Severity Reaction Status Date / Time codeine Allergy Unknown Verified 12/20/24 06:12 Review of Systems ENT: Reports system reviewed and no additional complaints, except as documented Cardiovascular: Cardiovascular: Reports no additional cardiovascular complaints Respiratory: Respiratory: Reports no additional respiratory complaints Gastrointestinal: Gastrointestinal: Reports no additional gastrointestinal complaints PMFSH Past Medical History [facility] Narrative: History of stroke,DM, PVD Social History Social History Advance Directives: No Advance Directives Information Provided: No Do you have a plan to hurt others: No Plan Physical Exam ED Vital Signs: Vital Signs - 24 hr 12/20/24 06:10 Temperature 97.3 F Pulse Rate 61 Respiratory Rate 16 Blood Pressure 150/73 H Pulse Oximetry 94 Oxygen Delivery Method Room Air BMI result Body Mass Index 28.4 Not acute distress Const General: cooperative Nutritional Appearance: well nourished Orientation/consciousness: patient oriented x3 Limitations: no limitations HENMT Other: The mouth is wide open unable to close it Head: Yes normal to inspection Neck Neck: Yes normal visual inspection and Yes full ROM Chest Chest palpation & inspection: normal inspection of the chest Resp Effort & Inspection: normal respiratory effort Auscultation: clear to auscultation bilaterally Cardio Jugular venous distension: no JVD Palpation: normal PMI Rate: regular rate Rhythm: regular rhythm GI Inspection: Yes normal to inspection Palpation (GI): Soft to palpation, not firm, nontender and no guarding Skin General skin exam: no rashes or lesions noted Lesions: no lesions Rashes: no rashes Neuro Other: At the baseline General: patient oriented x3 Extrem Other: Status post of the left above knee amputation Right lower extremity: normal to inspection Course Course Course Narrative: Patient presented with a jaw dislocation, the jaw was reduced by me Reevaluation(s) Reevaluation #1: JAW WAS REDUCED, PATIENT IS NOW ABLE TO FULLY CLOSE HIS MOUTH Procedures Procedure Narrative Procedure Narrative: JAW DISLOCATION REDUCTION: Lower jaw was manipulated by me with pressure lower and backward I was able to reduce the dislocation Medical Decision Making Medical Decision Making MDM Narrative: Patient presented with a jaw dislocation we will obtain imaging Differential Diagnosis Differential Diagnoses: The differential diagnosis associated with the presentation includes Jaw dislocation/jaw fracture Independent Interpretation I performed an independent interpretation of an: Plain X-Ray Interpretation: I personally review interpreted the x-ray as a jaw dislocation Radiology Impression Discussion of test interpretation with radiology: I have reviewed the radiologist's reading. Radiologist Impression: I do not agree with radiologist reading Discharge Plan Discharge Clinical Impression: Dislocated jaw Qualifiers: Encounter type: initial encounter Qualified Code(s): S03.00XA - Dislocation of jaw, unspecified side, initial encounter Patient Disposition: [facility] Transfer Details: BACK TO [facility] Instructions: Jaw Dislocation (ED) Referrals: ENZO KINNEY [Primary Care Provider] - Print Language: Setswana
== END 2024-12-20 08:47 ==
PROVIDERS: Emergency Provider Emergency Medicine; PCP Emergency Medicine
DX: S03.00XA Dislocation of jaw, unspecified side, initial encounter (principal); X58.XXXA Exposure to other specified factors, initial encounter; Y93.9 Activity, unspecified; Y92.129 Unspecified place in nursing home as the place of occurrence of the external cause; Y99.9 Unspecified external cause status
CPT/HCPCS: 21480; 70100; 99283; 99284

== ENCOUNTER → 2024-12-20 06:08 | Outpatient (BNV) | payer SELFPAY | PROVIDERS: Emergency Provider Emergency Medicine; PCP Emergency Medicine; Visit Provider Radiology Diagnostic Radiology | DX: R68.84 Jaw pain (principal) | CPT/HCPCS: 70100 ==